=== PATIENT | male | born 1950 | race Caucasian/White ===

== ENCOUNTER 2019-04-23 07:35 | Outpatient (CLI) | payer MEDICARE ==
[2019-04-23 09:20] LABS: #Eosinphils 0.8 thou/uL (0.0-0.7); #Lymphocytes 1.4 thou/uL (1.20-3.40); #Monocytes 0.5 thou/uL (0.11-0.59); #Neutrophils 3.4 thou/uL (1.40-6.50); %Basophils 0.5 % (0.0-1.0); %Eosinophils 12.5 % (0.0-10.0); %Lymphocytes 23.2 % (21.0-51.0); %Neutrophils 55.9 % (42.0-75.0); Hemoglobin 11.8 g/dL (14.0-18.0); Mean Corpuscular HGB CONC 34.4 g/dL (32.0-36.0); Mean Corpuscular Hemoglobin 31.4 pg (27.0-31.0); Mean Corpuscular Volume 91.5 fL (78.0-98.0); Mean Platelet Volume 6.7 fL (7.4-10.4); Platelet Count 282 thou/uL (130-400); RBC Distribution Width 11.4 % (11.5-14.5); Red Blood Cell (RBC) Count 3.76 mill/uL (4.70-6.10); White Blood Cell (WBC) Count 6.1 thou/uL (4.8-10.8)
--- NOTE | 2019-04-23 09:42 | RAD ---
CHEST 2 VIEWS: Date: 04/23/19 HISTORY: Preoperative evaluation. COMPARISON: 07/31/16. FINDINGS: Postop midline sternotomy. Heart size is normal. The lungs are clear. IMPRESSION: No acute intrathoracic disease. Postop midline sternotomy. POS: TPC
[2019-04-23 09:48] LABS: ALT (SGPT) 16 U/L (8-55); AST (SGOT) 15 U/L (5-34); Albumin 4.5 g/dL (3.4-4.8); Alkaline Phosphatase 46 U/L (40-110); Anion Gap 9 mmol/L (10-20); BUN (Urea Nitrogen) 20 mg/dL (8.4-25.7); Bilirubin, Total 0.4 mg/dL (0.2-1.2); Calc. Creatinine Clearance 0 mL/min (70-130); Carbon Dioxide 28 mmol/L (23-31); Chloride 104 mmol/L (98-107); Estimated GFR-MDRD 64; Globulin 2.7 g/dL (2.4-3.5); Glucose 207 mg/dL (83-110); Potassium 5.2 mmol/L (3.5-5.1); Protein, Total 7.2 g/dL (5.8-8.1); Sodium 136 mmol/L (136-145)
== END 2019-04-23 07:36 | disposition home or self-care (01) ==
LOC: LABBT 07:35
PROVIDERS: ATTEND Internal Medicine Cardiovascular Disease
DX: Z01.818 Encounter for other preprocedural examination (principal); R94.39 Abnormal result of other cardiovascular function study; Z98.890 Other specified postprocedural states
CPT/HCPCS: 71046; 80053; 85025

== ENCOUNTER 2019-04-28 05:46 | Day surgery (SDC) | payer MEDICARE ==
[2019-04-28] MEDS ORDERED: Heparin 10,000 UNITS/1 ML VIAL ONE (06:40)
[2019-04-28] MEDS ORDERED: Lidocaine 1% (PF) 30 ML VIAL ONE (06:40)
[2019-04-28] MEDS ORDERED: Heparin (Artline) 1,000 ML ONE (06:40)
[2019-04-28] MEDS ORDERED: Midazolam HCl 2 mg/2 ml Vial ONE (07:04)
[2019-04-28] MEDS ORDERED: Fentanyl 100 MCG/2 ML VIAL ONE (07:04)
[2019-04-28 07:24] LABS: Cardiac Risk 3.3 (Less than 4.5)
[2019-04-28] MEDS ORDERED: Protamine Sulfate 50 MG/5 ML VIAL ONE (07:44)
[2019-04-28] MEDS ORDERED: Sodium Chloride 0.9% 200 ML IV PRN (08:07)
[2019-04-28] MEDS ORDERED: Nitroglycerin 0.4 MG TAB (25 Tab Bottle) SL PRN (08:07)
[2019-04-28] MEDS ORDERED: Sodium Chloride 0.9% 1,000 ML IV SCH (08:15)
[2019-04-28] MEDS ORDERED: Iopamidol 370 76% 100 ML VIAL ONE (13:23)
[2019-04-28] MEDS ORDERED: Iopamidol 370 76% 50 ML VIAL FS ONE (13:23)
[2019-04-28] MEDS ORDERED: Dextrose 50% Abboject 50 ML SYRINGE IVP PRN (15:29)
[2019-04-28] MEDS ORDERED: Dextrose 5% in Water 1,000 ML IV PRN (15:29)
[2019-04-28] MEDS: Amlodipine 10 MG TAB PO SCH (16:08)
[2019-04-28] MEDS: Aspirin 81 mg Enteric Coated Tablet PO SCH (16:08)
[2019-04-28] MEDS: Isosorbide Mononitrate (ER) 30 MG TAB PO SCH (16:08)
[2019-04-28] MEDS: Lisinopril 20 MG TAB PO SCH (16:09)
[2019-04-28] MEDS: Sodium Chloride 0.9% 1,000 ML IV SCH (16:09)
[2019-04-28 16:11] VITALS: BMI 22.8
[2019-04-28] MEDS: Insulin Regular 300 UNITS/3 ML VIAL SC PRN (17:26)
[2019-04-28] MEDS: Atorvastatin Calcium 20 MG TAB PO SCH (21:22)
[2019-04-29 04:39] LABS: Anion Gap 14 mmol/L (10-20); BUN (Urea Nitrogen) 19 mg/dL (8.4-25.7); Calc. Creatinine Clearance 69 mL/min (70-130); Calcium 9.2 mg/dL (7.8-10.44); Carbon Dioxide 21 mmol/L (23-31); Chloride 107 mmol/L (98-107); Estimated GFR-MDRD 78; Glucose 135 mg/dL (83-110); Potassium 4.5 mmol/L (3.5-5.1); Sodium 137 mmol/L (136-145)
[2019-04-29] MEDS: Amlodipine 10 MG TAB PO SCH (09:11)
[2019-04-29] MEDS: Aspirin 81 mg Enteric Coated Tablet PO SCH (09:11)
[2019-04-29] MEDS: Lisinopril 20 MG TAB PO SCH (09:12)
[2019-04-29] MEDS: Isosorbide Mononitrate (ER) 30 MG TAB PO SCH (09:12)
[2019-04-29] MEDS: Sodium Chloride 0.9% 1,000 ML IV SCH (10:00)
--- NOTE | 2019-04-29 11:56 | CON ---
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 He underwent three-vessel coronary artery bypass grafting in [place] about 11 years ago. Since that time, he has followed with Dr. Stringer and been compliant with his medications. He has no smoking history, but does have a family history of heart disease. Cholesterol levels have been good on management. He has been complaining of dyspnea on exertion, although when I talked to him, he states that occasionally about twice a week while he is doing the dishes, he gets a tightness in his chest or a funny feeling and some dyspnea. He had a stress test by Dr. Stringer about six or seven months ago that was abnormal. However, the patient was in [place] working at the time that he found out the results and is just now getting to this point. PAST MEDICAL HISTORY: Other past medical history includes diabetes mellitus type 2, hyperlipidemia, hypertension, and coronary artery disease. PAST SURGICAL HISTORY: Coronary artery bypass graft x3 in 2005, cardiac catheterization in 2009, and cholecystectomy. SOCIAL HISTORY: He is . Never smoked. His is in a wheelchair related to ascending aortic aneurysm surgery that he had in [place] in [place]. ALLERGIES: TO CODEINE. MEDICATIONS: 1. Metformin 1000 b.i.d. 2. Amlodipine 10 daily. 3. Lisinopril 40 daily. 4. Aspirin 81 a day. 5. Glipizide 5 mg daily. 6. Simvastatin 20 mg daily. 7. Isosorbide ER 60 a day. PHYSICAL EXAMINATION: GENERAL: Alert, cooperative gentleman, about 5 foot 8 inches and 160 pounds. NECK: No carotid bruits. LUNGS: Clear to auscultation. Chest exam, well-healed sternotomy incision. CARDIAC: No murmurs. ABDOMEN: Soft and nontender. EXTREMITIES: He has palpable posterior tibial pulses bilaterally with no peripheral edema. Difficult to see which leg had the saphenous vein harvest, but there is a hint of a slight scar just above the left knee, although I am not sure about this. ASSESSMENT AND PLAN: Cardiac catheterization showed three patent grafts, although the obtuse marginal graft has some mid stenosis. I am not sure whether this is an obtuse marginal or a posterolateral branch actually. The diagonal branch graft is open and the left internal mammary artery is widely patent, although the distal left anterior descending is diffusely and severely diseased. The proximal circumflex has a 99% stenosis and gives rise to two small distal obtuse marginal branches, which are not amenable to grafting. The right coronary artery is small sized, but is a dominant vessel with critical proximal and mid lesions. Surgical intervention could be undertaken to the main right coronary artery, although this is not a particularly dominant appearing vessel. The circumflex cannot be grafted. LAD graft is patent, although goes to a diffusely and severely diseased vessel. At this time, I think redo grafting for a right coronary artery is probably not appropriate and medical management of this is most reasonable option. Job ID: [id number]
[2019-04-29] MEDS: Insulin Regular 300 UNITS/3 ML VIAL SC PRN (12:41)
[2019-04-29 15:56] VITALS: TEMP 97.5
[2019-04-29] MEDS: Atorvastatin Calcium 20 MG TAB PO SCH (20:53)
[2019-04-29 21:19] VITALS: BP 169/77
--- NOTE | 2019-04-30 04:30 | DIS ---
DATE OF ADMISSION: 04/28/2019 DATE OF DISCHARGE: 04/29/2019 DISCHARGE DIAGNOSES: 1. Dyspnea on exertion, probable anginal equivalent. 2. Status post coronary artery bypass grafting with 3/3 grafts patent with disease in 1 of the 3 grafts. 3. Bradycardia-resolved with discontinuation of metoprolol. 4. Nonsustained ventricular tachycardia. 5. Hypercholesterolemia, changed to atorvastatin. 6. Hypertension. 7. Diabetes. 8. Positive family history. DISCHARGE MEDICATIONS: 1. Metformin 1000 mg b.i.d., it was resumed the day after discharge. 2. Amlodipine 10 mg daily. 3. Ranexa 500 mg b.i.d. 4. Atorvastatin 40 mg daily. 5. Aspirin 81 daily. 6. Glipizide 5 mg q.a.m. 7. Isosorbide mononitrate 30 mg daily. 8. Lisinopril 40 mg daily. 9. Nitroglycerin p.r.n. DISCHARGE DISPOSITION: The patient will be seen in 1 month for followup. Ranexa dose will probably be increased at that time. Also, consideration could be given to the addition of Xarelto 2.5 b.i.d. HOSPITAL COURSE: Mr. Peralta underwent cardiac catheterization for abnormal cardiac PET scan. This performed for evaluation of nonsustained ventricular tachycardia, which was seen on a 30-day monitor followed by the PET scan, which was abnormal. At catheterization, he was found to have mild proximal to distal anterior hypokinesis with ejection fraction of 45% to 50%. There was a 70% left main, 80% proximal LAD, total occlusion of the mid LAD, and a total occlusion of the first diagonal. The circumflex had a 90% proximal stenosis at the left main, 50% distal stenosis. The obtuse marginal 1 was totally occluded and filled retrograde via collaterals. The obtuse marginal 2 was totally occluded, but had a bypass graft. The right coronary artery had an 80% proximal stenosis with pressure damping, 70% followed by another 70% mid stenosis. Bypass grafts revealed patent JUAREZ to the LAD. There was 80% to 90% stenosis distal to the graft. The diagonal graft was patent. The obtuse marginal graft had a 70% and 60% stenosis. The patient was observed overnight and hydrated due to history of previous renal problems. He also was seen in consultation by Dr. Arita, who felt that probably only the main right coronary artery could be bypassed. Significant lesion in the proximal circumflex could not be bypassed due to a very small distal vessel. Overall, feeling that the best option for Mr. Peralta would be intensified medical therapy. Ranexa was added and an attempt will be made to keep his cholesterol lower. Job ID: [id number]
== END 2019-04-29 21:05 | disposition home or self-care (01) ==
LOC: CCL 05:46 → 2NO 15:15 → CCL 04-29 21:05
PROVIDERS: ATTEND Internal Medicine Cardiovascular Disease
PROC: 4A023N7 Measurement of Cardiac Sampling and Pressure, Left Heart, Percutaneous Approach (ICD-10-PCS; principal; 2019-04-28)
PROC: B2111ZZ Fluoroscopy of Multiple Coronary Arteries using Low Osmolar Contrast (ICD-10-PCS; 2019-04-28)
PROC: B2131ZZ Fluoroscopy of Multiple Coronary Artery Bypass Grafts using Low Osmolar Contrast (ICD-10-PCS; 2019-04-28)
PROC: B2181ZZ Fluoroscopy of Left Internal Mammary Bypass Graft using Low Osmolar Contrast (ICD-10-PCS; 2019-04-28)
DX: I25.10 Atherosclerotic heart disease of native coronary artery without angina pectoris (principal); I25.810 Atherosclerosis of coronary artery bypass graft(s) without angina pectoris; I25.82 Chronic total occlusion of coronary artery; E78.00 Pure hypercholesterolemia, unspecified; I10 Essential (primary) hypertension; E11.9 Type 2 diabetes mellitus without complications; E78.5 Hyperlipidemia, unspecified; Z79.82 Long term (current) use of aspirin; Z79.84 Long term (current) use of oral hypoglycemic drugs; Z79.899 Other long term (current) drug therapy; Z88.5 Allergy status to narcotic agent
CPT/HCPCS: 36415; 36416; 80048; 80061; 85347; 93458; 99152; 99153; C1769; J1644; J1815; J2001; J2250; J2720; J3010; Q9967

== ENCOUNTER 2019-11-12 15:27 | Emergency (ER) | payer MEDICARE ==
[2019-11-12 16:19] LABS: #Eosinphils 0.5 thou/uL (0.0-0.7); #Lymphocytes 1.5 thou/uL (1.20-3.40); #Monocytes 0.6 thou/uL (0.11-0.59); #Neutrophils 2.9 thou/uL (1.40-6.50); %Basophils 0.6 % (0.0-1.0); %Eosinophils 8.6 % (0.0-10.0); %Lymphocytes 26.7 % (21.0-51.0); %Monocytes 10.3 % (0.0-10.0); %Neutrophils 53.8 % (42.0-75.0); Hemoglobin 9.8 g/dL (14.0-18.0); Mean Corpuscular HGB CONC 34.3 g/dL (32.0-36.0); Mean Corpuscular Hemoglobin 32.8 pg (27.0-31.0); Mean Corpuscular Volume 95.6 fL (78.0-98.0); Mean Platelet Volume 6.9 fL (7.4-10.4); Platelet Count 258 thou/uL (130-400); RBC Distribution Width 11.3 % (11.5-14.5); Red Blood Cell (RBC) Count 2.98 mill/uL (4.70-6.10); White Blood Cell (WBC) Count 5.5 thou/uL (4.8-10.8)
[2019-11-12 16:40] LABS: ALT (SGPT) 13 U/L (8-55); AST (SGOT) 12 U/L (5-34); Albumin 3.9 g/dL (3.4-4.8); Alkaline Phosphatase 56 U/L (40-110); Anion Gap 12 mmol/L (10-20); BUN (Urea Nitrogen) 23 mg/dL (8.4-25.7); Bilirubin, Total 0.4 mg/dL (0.2-1.2); CK (CPK) 64 U/L (30-200); Calc. Creatinine Clearance 0 mL/min (70-130); Calcium 8.9 mg/dL (7.8-10.44); Carbon Dioxide 23 mmol/L (23-31); Chloride 102 mmol/L (98-107); Estimated GFR-MDRD 42; Globulin 2.7 g/dL (2.4-3.5); Glucose 201 mg/dL (83-110); Lipase 20 U/L (8-78); Potassium 4.4 mmol/L (3.5-5.1); Protein, Total 6.6 g/dL (5.8-8.1); Sodium 133 mmol/L (136-145)
--- NOTE | 2019-11-12 16:42 | CT ---
CT Head without IV contrast COMPARISON: None. HISTORY: Trauma. Patient fell and hit head on a still being 3 days ago. Patient reports dizziness which has w orsened throughout the day. TECHNIQUE: Axial CT imaging at 5 mm intervals from vertex through skull base without contrast FINDINGS: There is no evidence of an acute infarction, hemorrhage, mass effect, or midline shift. There is decr eased attenuation seen in the periventricular white matter which is nonspecific but likely attributable to chronic small vessel ischemic changes. There is mild cerebral volume loss. The ventri cular system is normal in size, shape, and position for the degree of sulcal atrophy. Visualized paranasal sinuses are clear. Osseous structures appear intact. IMPRESSION: 1. No acute intracranial abnormality demonstrated. additional findings
--- NOTE | 2019-11-12 17:29 | RAD ---
PORTABLE CHEST: 11/12/19 PROVIDED CLINICAL HISTORY: Syncope. COMPARISON: 07/31/16. Cardiac and mediastinal silhouette is within normal limits. Median sternotomy changes are seen. No fo genny consolidation, pleural fluid or pneumothorax apparent. IMPRESSION: No evidence for an acute cardiopulmonary process. POS: GINGER
== END 2019-11-12 17:35 | disposition home or self-care (01) ==
LOC: ERS 15:27
DX: S06.0X0A Concussion without loss of consciousness, initial encounter (principal); R55 Syncope and collapse; E11.9 Type 2 diabetes mellitus without complications; E78.5 Hyperlipidemia, unspecified; E78.00 Pure hypercholesterolemia, unspecified; I10 Essential (primary) hypertension; Z79.82 Long term (current) use of aspirin; Z79.84 Long term (current) use of oral hypoglycemic drugs; Z79.899 Other long term (current) drug therapy; W01.198A Fall on same level from slipping, tripping and stumbling with subsequent striking against other object, initial encounter
CPT/HCPCS: 36415; 70450; 71045; 80053; 82550; 83690; 83880; 84484; 85025; 93005

== ENCOUNTER 2019-11-30 12:09 | Observation (INO) | payer MEDICARE, OTHER ==
[2019-11-30 12:33] LABS: #Eosinphils 0.1 thou/uL (0.0-0.7); #Monocytes 0.5 thou/uL (0.11-0.59); #Neutrophils 6.5 thou/uL (1.40-6.50); %Basophils 0.2 % (0.0-1.0); %Eosinophils 1.8 % (0.0-10.0); %Lymphocytes 11.7 % (21.0-51.0); %Monocytes 6.1 % (0.0-10.0); %Neutrophils 80.3 % (42.0-75.0); Hemoglobin 10.8 g/dL (14.0-18.0); Mean Corpuscular HGB CONC 33.6 g/dL (32.0-36.0); Mean Corpuscular Hemoglobin 32.2 pg (27.0-31.0); Mean Corpuscular Volume 95.9 fL (78.0-98.0); Mean Platelet Volume 6.8 fL (7.4-10.4); Platelet Count 291 thou/uL (130-400); RBC Distribution Width 11.4 % (11.5-14.5); Red Blood Cell (RBC) Count 3.36 mill/uL (4.70-6.10); White Blood Cell (WBC) Count 8.1 thou/uL (4.8-10.8)
[2019-11-30 12:56] LABS: ALT (SGPT) 18 U/L (8-55); AST (SGOT) 13 U/L (5-34); Albumin 4.2 g/dL (3.4-4.8); Alkaline Phosphatase 53 U/L (40-110); Anion Gap 13 mmol/L (10-20); BUN (Urea Nitrogen) 27 mg/dL (8.4-25.7); Bilirubin, Total 0.6 mg/dL (0.2-1.2); CK (CPK) 57 U/L (30-200); Calc. Creatinine Clearance 0 mL/min (70-130); Calcium 9.3 mg/dL (7.8-10.44); Carbon Dioxide 24 mmol/L (23-31); Chloride 105 mmol/L (98-107); Estimated GFR-MDRD 33; Globulin 2.6 g/dL (2.4-3.5); Glucose 280 mg/dL (83-110); Protein, Total 6.8 g/dL (5.8-8.1); Sodium 135 mmol/L (136-145)
--- NOTE | 2019-11-30 12:58 | RAD ---
XR Chest 1 View Portable HISTORY: Dizziness and weakness COMPARISON: 11/12/2019 FINDINGS: The heart size is normal. Changes of median sternotomy are again seen. The lungs are well e xpanded without focal areas of consolidation, pneumothorax or pleural effusions. IMPRESSION: No radiographic evidence of acute cardiopulmonary process.
[2019-11-30 13:04] LABS: Potassium 6.6 mmol/L (3.5-5.1)
[2019-11-30 15:31] LABS: Anion Gap 13 mmol/L (10-20); BUN (Urea Nitrogen) 26 mg/dL (8.4-25.7); Calc. Creatinine Clearance 0 mL/min (70-130); Carbon Dioxide 22 mmol/L (23-31); Chloride 106 mmol/L (98-107); Estimated GFR-MDRD 39; Glucose 207 mg/dL (83-110); Potassium 6.1 mmol/L (3.5-5.1); Sodium 135 mmol/L (136-145)
[2019-11-30] MEDS ORDERED: Calcium Gluc 4.6 MEQ/10 ML (100 MG/ML) ONE (16:12)
[2019-11-30] MEDS ORDERED: Sodium Bicarb 50 MEQ/50 ML Abboject 8.4% SYRINGE ONE (16:12)
[2019-11-30] MEDS ORDERED: Dextrose 50% Abboject 50 ML SYRINGE ONE (16:12)
[2019-11-30] MEDS ORDERED: Insulin Regular 300 UNITS/3 ML VIAL ONE (16:12)
[2019-11-30] MEDS ORDERED: Senokot S 8.6-50 MG TAB PO PRN (16:57)
[2019-11-30] MEDS ORDERED: Ondansetron ODT 4 MG TAB PO PRN (16:57)
[2019-11-30] MEDS ORDERED: Acetaminophen 325 MG TAB PO PRN (16:57)
[2019-11-30 16:59] LABS: Magnesium 1.7 mg/dL (1.6-2.6); Phosphorus 3.1 mg/dL (2.3-4.7)
[2019-11-30] MEDS ORDERED: Dextrose 5% in Water 1,000 ML IV PRN (17:05)
[2019-11-30] MEDS ORDERED: Dextrose 50% Abboject 50 ML SYRINGE SLOW IVP PRN (17:05)
[2019-11-30] MEDS ORDERED: HumaLOG 300 UNITS/3 ML VIAL SC PRN ×2 (17:05)
[2019-11-30 17:06] LABS: Troponin I 0.013 ng/mL (< 0.028)
[2019-11-30] MEDS ORDERED: Atropine Sulfate 1 mg/1 ml Vial IVP PRN (17:25)
[2019-11-30] MEDS ORDERED: Magnesium 2 GM/50 ML 2 GM in Premix Bag 1 BAG IVPB SCH (17:30)
--- NOTE | 2019-11-30 18:30 | HP ---
PRIMARY CARE PHYSICIAN: Vitor Rowan MD CHIEF COMPLAINT: Dizziness x1 year. HISTORY OF PRESENT ILLNESS: The patient is a 69-year-old male with a past medical history significant for quadruple bypass in 2006, hypertension, hyperlipidemia, and diabetes, who presents to the ER for the above complaint. The patient reports the development of dizziness while working outside on a handrail. He reports that he was going to feel like he was going to "pass out." He denies the room spinning. He says that this has happened million times before, reporting that it always happens when I stand up or go from sitting to standing. He denies any chest pain, heart palpitations, or any lower extremity swelling. He denies any shortness of breath, wheezing, or cough. He denies any abdominal pain, nausea, vomiting, diarrhea, or blood in his stools. He denies any dysuria, fever, or chills. He had a cardiac cath in April [address] Stringer, which showed significant left heart disease. Dr. Arita was consulted and recommended medical management, which the patient has been compliant on his medications. EMS was called. The patient's vital signs were stable. He was brought into the ER. In the ER, he was afebrile, normotensive, bradycardic with a heart rate 55, normal respirations, normal oxygen sat, no pain. EKG, sinus raquel at 57 with some peaked T-waves. Troponin negative. CK 57. His potassium was 6.6, BUN 27, and creatinine 1.75. His CBC was unremarkable. He was given an amp of D50, Novolin 10 units IV push, and some calcium gluconate, 1 L of normal saline with an amp of bicarb. PAST MEDICAL HISTORY: 1. Diabetes 2. 2. Hyperlipidemia. 3. Hypertension. PAST SURGICAL HISTORY: 1. CABG x4 in 2006. 2. Cholecystectomy. 3. Femur surgery. SOCIAL HISTORY: Lives with his family. He has no history of smoking, illicit drug use, or alcohol intake. He works as a contractor, a kind of parts delivery driver. FAMILY HISTORY: Contributory for cardiac disease, contributory for diabetes. ALLERGIES: CODEINE. HOME MEDICATIONS: 1. Metoprolol 2.5 mg p.o. b.i.d. 2. Aspirin 81 mg p.o. daily. 3. Xarelto, the patient reports 2.5 mg p.o. b.i.d. 4. Lisinopril 20 mg p.o. daily. 5. Simvastatin 20 mg p.o. daily. 6. Norvasc 5 mg p.o. daily. 7. Isosorbide mononitrate extended release 30 mg p.o. daily. 8. Ranexa 1000 mg p.o. b.i.d. 9. Metformin 1000 mg p.o. b.i.d. 10. Glipizide 5 mg p.o. daily. REVIEW OF SYSTEMS: All review of systems are negative unless otherwise stated in HPI. PHYSICAL EXAMINATION: VITAL SIGNS: Temperature 97.5, blood pressure 126/70, heart rate 55, respirations 18, and SpO2 of 99, 0/10 pain. CONSTITUTIONAL: The patient is alert and oriented to person, place, and time. No acute distress. Nontoxic in appearance. HEAD: Atraumatic and normocephalic. EYES: PERRLA. Extraocular muscles are intact. Sclerae nonicteric. ENT: Bilateral EACs, clear. TMs intact. Nares patent bilaterally. Oropharynx is clear. Uvula midline. Tacky mucous membranes. No oral lesions. NECK: Full range of motion. No cervical spinous tenderness. No JVD. No cervical adenopathy. RESPIRATORY/CHEST: Respirations even nonlabored. Clear to auscultation. No rhonchi, wheezes, or rales. CARDIOVASCULAR: S1 and S2 appreciated. Sinus raquel on the monitor. No murmurs , rubs or gallops. ABDOMEN: Soft, nontender, and nondistended. Active bowel sounds. No guarding. No rigidity. No rebound. Negative Rovsing sign. Negative Almendarez sign. No abdominal bruit auscultated. BACK: Full range of motion. No central spinous tenderness. No CVA tenderness. EXTREMITIES: Bilateral lower extremities, full range of motion. Strength normal. Sensation intact. Palpable radial pulses. Lower extremities, full range of motion. Strength normal. Sensation intact. Palpable pedal pulses, no swelling. NEUROLOGICAL: A and O x3. Moves all extremities well. No focal motor deficits. normal gait.PSYCHIATRIC: Normal affect. A and O x3. LABS AND DIAGNOSTICS: Chest x-ray negative for any acute process. EKG showed sinus raquel with some peaked T-waves. Sodium 135, potassium 6.6, chloride 105, carbon dioxide 24, BUN 27, creatinine 2.03, glucose 280, calcium 9.3, phosphorus 3.1, magnesium 1.7, total bilirubin 0.6, AST 13, ALT 18, alkaline phosphatase 53. CK 57. Tial troponin negative, second troponin 0.013. WBCs 8.1, hemoglobin 10.8, hematocrit 32.3, and platelets 291. IMPRESSION AND PLAN: 1. Near syncope. We will admit the patient to the telemetry floor observation status. Expected length of stay less than two midnights. The patient presents for what appears to be orthostatic hypotension with a significant history of 4- vessel CABG and cardiac risk factors. Potassium 6.6 after ER interventions, now 6.1. We will continue IV fluids with an amp of bicarb. We will give Kayexalate and lactulose. We will get a cardiac echocardiogram, check a carotid ultrasound, and consult Dr. Stringer with Cardiology for further input. We will check a TSH, a BNP and a fasting lipid profile. We will trend troponins. We will check orthostatics, vital signs. 2. Basically hyperkalemia. The patient presented with a potassium 6.6, did have some peaked T-waves. Initial troponin negative. The patient was asymptomatic in terms of chest pain, heart palpitations. We will give IV fluids with bicarb. We will give Kayexalate and lactulose. We will recheck a BMP at 2200 hours. 3. Acute kidney injury, we will give IV fluids. We will check a renal ultrasound. We will check a postvoid residual. We will recheck level in a.m. The patient presented with a creatinine of 1.75, baseline appears to be 1.2. 4. Diabetes type 2, non-insulin dependent. We will hold glipizide and metformin. We will put on moderate sliding scale with Accu-Cheks a.c. and at bedtime. We will check a hemoglobin A1c. 5. Hypertension. We will hold AMAIRANI inhibitors secondary to DWIGHT. We will hold beta-cyril secondary to bradycardia and hyperkalemia. We will restart Imdur, Ranexa, and amlodipine when reconciled by nursing and we will continue to monitor BP. 6. Hyperlipidemia. We will check a fasting lipid profile. We will restart the patient's home statin when reconciled by nursing. 7. SCDs for DVT prophylaxis. Protonix for GI prophylaxis. The patient is a full code. His contact is his girlfriend's brother. Discussed the case with Dr. Kenney. Job ID: [id number] MTDD
[2019-11-30 18:31] LABS: SARS-CoV-2 NAA Rapid Test Not Detected (NotDetected)
[2019-11-30 21:06] LABS: Bacteria/HPF None Seen HPF (None Seen); Bilirubin Negative (Negative); Blood, Urine Negative (Negative); Clarity Clear (Clear); Glucose, Urine (Dipstick) 500 mg/dL (Negative); Ketone, Urine Negative (Negative); Leukocyte Negative Leu/uL (Negative); Nitrite Negative (Negative); Protein, Urine (Dipstick) Negative (Neg-Trace); RBC/HPF 0-3 HPF (0-3); Specific Gravity, Urine 1.016 (1.002-1.036); Squamous Epithelial None Seen HPF (0-3); Urobilinogen Normal mg/dL (Less than 2); WBC/HPF 0-3 HPF (0-3); pH, Urine 6.5 (5.0-9.0)
[2019-11-30 22:36] LABS: Anion Gap 13 mmol/L (10-20); BUN (Urea Nitrogen) 24 mg/dL (8.4-25.7); Calc. Creatinine Clearance 0 mL/min (70-130); Calcium 9.3 mg/dL (7.8-10.44); Carbon Dioxide 24 mmol/L (23-31); Chloride 104 mmol/L (98-107); Estimated GFR-MDRD 37; Glucose 169 mg/dL (83-110); Potassium 4.8 mmol/L (3.5-5.1); Sodium 136 mmol/L (136-145)
--- NOTE | 2019-11-30 23:11 | ULT ---
BILATERAL CAROTID DUPLEX ULTRASOUND: HISTORY: Near-syncope TECHNIQUE: Grayscale, color-flow and spectral Doppler ultrasound imaging of the extracranial carotid artery syst ems was performed bilaterally. FINDINGS: Mild calcified atherosclerotic plaque is seen in the region of the carotid bulbs and proximal interna l carotid arteries bilaterally with slightly greater calcified atherosclerotic plaque involving the distal left common carotid artery. There is no hemodynamically significant stenosis in the bilateral internal carotid arteries according to the peak systolic velocities and the ICA/CCA ratios. The peak systolic velocity in the right ICA measures 63.3 cm/s. The peak systolic velocity in the left IC A measures 115.5 cm/s. The right ICA/CCA ratio is 0.82, and the left ICA/CCA ratio is 1.51. Vertebral arteries: Antegrade flow is demonstrated in the vertebral arteries bilaterally. IMPRESSION: No hemodynamically significant stenosis in the bilateral internal carotid arteries.
--- NOTE | 2019-11-30 23:12 | ULT ---
Bilateral renal ultrasound CLINICAL INDICATION: Acute renal insufficiency. COMPARISON: None FINDINGS: Right kidney: There is no evidence of a renal mass, renal calculus, or hydronephrosis seen. The right kidney measures 10.3 cm x 5.5 seen. Left kidney: There is no evidence of a renal mass, renal calculus, or hydronephrosis. The left kidney measures 10.4 cm x 5.2 cm. Urinary bladder: Normal in appearance. Ureteral jets are seen bilaterally on color flow evaluation. IMPRESSION: No evidence of hydronephrosis.
[2019-11-30 23:32] VITALS: BMI 25.3
[2019-11-30] MEDS: Sodium Bicarbonate 50 MEQ in Sodium Chloride 0.45% 1,000 ML IV SCH (23:40)
[2019-12-01 04:30] LABS: #Eosinphils 0.2 thou/uL (0.0-0.7); #Lymphocytes 1.3 thou/uL (1.20-3.40); #Monocytes 0.8 thou/uL (0.11-0.59); #Neutrophils 4.5 thou/uL (1.40-6.50); %Basophils 0.4 % (0.0-1.0); %Eosinophils 3.6 % (0.0-10.0); %Lymphocytes 18.9 % (21.0-51.0); %Monocytes 11.3 % (0.0-10.0); %Neutrophils 65.8 % (42.0-75.0); Hemoglobin 11.8 g/dL (14.0-18.0); Mean Corpuscular HGB CONC 32.1 g/dL (32.0-36.0); Mean Corpuscular Hemoglobin 31.2 pg (27.0-31.0); Mean Corpuscular Volume 97.2 fL (78.0-98.0); Mean Platelet Volume 6.9 fL (7.4-10.4); Platelet Count 292 thou/uL (130-400); RBC Distribution Width 11.5 % (11.5-14.5); Red Blood Cell (RBC) Count 3.79 mill/uL (4.70-6.10); White Blood Cell (WBC) Count 6.9 thou/uL (4.8-10.8)
[2019-12-01 04:37] LABS: Hemoglobin A1c 9.3 % (4.0-6.0)
[2019-12-01 04:49] LABS: Anion Gap 14 mmol/L (10-20); BUN (Urea Nitrogen) 19 mg/dL (8.4-25.7); Calc. Creatinine Clearance 50 mL/min (70-130); Calcium 9.4 mg/dL (7.8-10.44); Carbon Dioxide 21 mmol/L (23-31); Cardiac Risk 2.8 (Less than 4.5); Chloride 105 mmol/L (98-107); Cholesterol 104 mg/dl (< 200 Desired); Estimated GFR-MDRD 51; Glucose 170 mg/dL (83-110); HDL Cholesterol 37 mg/dL (>60 Neg Risk); LDL Cholesterol, Calculated 47 mg/dL; Potassium 4.3 mmol/L (3.5-5.1); Sodium 136 mmol/L (136-145); Triglycerides 98 mg/dL (Less than 150)
[2019-12-01] MEDS: Famotidine 20 MG TAB PO SCH (08:05)
[2019-12-01] MEDS: Sodium Bicarbonate 50 MEQ in Sodium Chloride 0.45% 1,000 ML IV SCH (08:39)
[2019-12-01] MEDS: Sodium Chloride 0.9% 1,000 ML IV SCH (11:25)
--- NOTE | 2019-12-01 14:29 | PDOC.HOSPP ---
- Subjective Encounter Date: 12/01/19 Encounter Time: 10:00 Subjective: no overnight events. this morning, feeling well and has no complaints. Walking with no lightheadedness or dizzines. Telemetry showing sinus with no arrhythmia. . - Objective Vital Signs & Weight: Vital Signs (12 hours) Temp Pulse Resp BP BP BP BP 12/01/19 11:13 97.4 F L 56 L 16 154/70 H 12/01/19 07:47 97.6 F 58 L 16 161/74 H 12/01/19 04:03 97.7 F 60 16 164/79 H 158/77 H 145/76 H 164/79 H Pulse Ox 12/01/19 11:13 98 12/01/19 07:47 99 12/01/19 04:03 99 Weight Weight 157 lb I&O: 11/30/19 12/01/19 12/02/19 06:59 06:59 06:59 Intake Total 1115 Output Total 1100 Balance 15 Result Diagrams: 12/01/19 04:20 12/01/19 04:20 Hospitalist ROS - Review of Systems Constitutional: denies: fever, chills Respiratory: denies: cough, dry, shortness of breath, hemoptysis Cardiovascular: denies: chest pain, palpitations, orthopnea, paroxysmal noc. dyspnea, edema Gastrointestinal: denies: nausea, vomiting, diarrhea, melena, hematochezia Genitourinary: denies: dysuria, frequency, incontinence, hematuria - Medication Medications: Active Medications Generic Name Dose Route Start Last Admin Trade Name Freq PRN Reason Stop Dose Admin Famotidine 20 mg 12/01/19 09:00 12/01/19 08:05 Pepcid PO 20 mg DAILY MARTHA Administration Sodium Chloride 1,000 mls @ 100 mls/hr 12/01/19 10:15 12/01/19 11:25 Normal Saline 0.9% IV 1,000 mls .Q10H MARTHA Administration - Exam General Appearance: NAD, awake alert Neck: no JVD Heart: RRR, no murmur, no gallops, no rubs Heart - other findings: longitudinal scar along sternum Respiratory: CTAB, no wheezes, no rales Gastrointestinal: soft, non-tender, non-distended Extremities: no edema Psychiatric: normal affect, normal behavior, A&O x 3 Hosp A/P - Plan #presyncope #orthostatic hypotension #prerenal DWIGHT most likely due to dehydration continue IVF recheck orthostats #Diabetes type 2, non-insulin dependent. Poorly controlled. will increase insulin regimen # Hypertension. poorly controlled. goal < 130/70. In context of orthostatic hypotension, will adjust medications after resolution of aforementioned # SCDs for DVT prophylaxis. Protonix for GI prophylaxis. The patient is a full code. His contact is his girlfriend's brother. ELOS: 1 night
[2019-12-01] MEDS: metFORMIN 500 MG TAB PO SCH (18:37)
--- NOTE | 2019-12-01 20:06 | CON ---
DATE OF CONSULTATION: HISTORY OF PRESENT ILLNESS: Marko Peralta is a 69-year-old white male with previous history of CABG x3 in November 2005 at [facility] in [place], [place]. In 2019, he had an abnormal Cardiolite and underwent cardiac catheterization in April 2019. This revealed mild proximal to distal anterior hypokinesis. There was a 70% left main, 80% proximal LAD, and total occlusion of the mid LAD. The first diagonal was totally occluded. The circumflex had a 90% proximal stenosis. The first obtuse marginal was occluded and filled retrograde. Second obtuse marginal was occluded. There was a 50% distal circumflex. The right coronary artery had an 80% proximal and 70% mid stenosis. Bypass grafts revealed patent JUAREZ to the LAD; however, there was a 90% apical LAD lesion. The diagonal graft was patent. The obtuse marginal two grafts were patent with a 70% and 60% stenosis. He was observed overnight and hydrated due to history of renal insufficiency. He was seen by Dr. Arita, who felt that probably only the right coronary artery could be bypassed. The significant lesion in the proximal circumflex could not be bypassed due to small vessels distally. It was a poor vessel for stenting due to its proximity to the left main. He was placed on Ranexa 500 mg b.i.d. Later in the office, he was placed on Xarelto 2.5 b.i.d. He denies any chest discomfort or shortness of breath recently. He twisted his ankle and fell and struck his head on November 09. Since that time, he had orthostatic dizziness. He has noticed that if he would stand up, he woould be dizzzy. He took his blood pressure and this would be in the 80s at times. He states he has been drinking a lot of water over the last three weeks, but still has some problems with orthostatic dizziness. He denies any vertigo. Yesterday, he was painting a hand rail in the heat and started to have the same type of problem. He states he vomited three times and every time he would stand up, would be very lightheaded, dizzy and would have to lie back down. Whenever he would be supine, his dizziness seemed to subside. When he presented, he had a potassium of 6.6, BUN 27, and creatinine 1.75. He does state that he drank a lot of orange juice at that time. He was given an amp of D50, Novolin 10 units IV, calcium gluconate, and 1 L of saline. Today states he feels very well. He has not had any bradycardia on the monitor. PAST MEDICAL HISTORY: Diabetes, hyperlipidemia, hypertension, renal insufficiency, and coronary artery disease. PAST SURGICAL HISTORY: CABG x3 in 2006, laparoscopic cholecystectomy, and femur surgery. SOCIAL HISTORY: He does not smoke or drink. FAMILY HISTORY: Father had myocardial infarction. REVIEW OF SYSTEMS: A 10-point review of systems is otherwise unremarkable. PHYSICAL EXAMINATION: VITAL SIGNS: Blood pressure 179/81 and pulse of 63. HEENT: PERRL. NECK: Supple. CHEST: Clear. CARDIAC: S1 and S2 normal without any S3, S4, or murmurs. Carotid upstrokes normal without bruits. ABDOMEN: Normal bowel sounds without tenderness or organomegaly. EXTREMITIES: Revealed no clubbing, cyanosis, or edema. NEUROLOGIC: Grossly intact. SKIN: Warm and dry. LABORATORY DATA: EKG revealed sinus bradycardia with rate of 57 per minute, nonspecific intraventricular conduction delay. Hemoglobin 11.8, hematocrit 36.9 , white count 6900, and platelets 292,000. Sodium 136, potassium 4.3, chloride 105, carbon dioxide 21, BUN 19, and creatinine 1.37. It is of note that his admission potassium was 6.6. Admission creatinine 2.03, which has come down to 1.37. Cholesterol 104, triglycerides 98, HDL 37, and LDL 47. TSH is normal. BNP is 72.9. Troponins have been normal. IMPRESSION: 1. Orthostatic hypotension. 2. Hyperkalemia, which has resolved. 3. Renal insufficiency, which has improved with hydration. 4. Hypertension. 5. Hyperlipidemia under good control. 6. Diabetes. 7. Status post CABG. PLAN: The patient currently continues to be hydrated. Today, he states that he feels very well and was standing up. He is not having any more of the orthostatics symptoms like he had yesterday. Blood pressure has started to increase in the 160s and 170s at times. Therefore, I will resume his lisinopril and amlodipine, but half of their previous doses. These also may need to be increased in the future. This also could be related to post head trauma that he had on November 09; however, it is probably more related to orthostatic hypotension with his laboratory abnormalities. Job ID: [id number] MTDD
[2019-12-02] MEDS: Sodium Chloride 0.9% 1,000 ML IV SCH (00:22)
[2019-12-02 04:49] LABS: Anion Gap 13 mmol/L (10-20); BUN (Urea Nitrogen) 18 mg/dL (8.4-25.7); Calc. Creatinine Clearance 61 mL/min (70-130); Calcium 8.5 mg/dL (7.8-10.44); Carbon Dioxide 21 mmol/L (23-31); Chloride 106 mmol/L (98-107); Estimated GFR-MDRD 65; Glucose 112 mg/dL (83-110); Magnesium 1.5 mg/dL (1.6-2.6); Sodium 136 mmol/L (136-145)
[2019-12-02] MEDS: metFORMIN 500 MG TAB PO SCH (07:51)
[2019-12-02] MEDS: Famotidine 20 MG TAB PO SCH (07:52)
[2019-12-02 08:52] VITALS: BP 148/68; TEMP 98.5
[2019-12-02] MEDS ORDERED: Lisinopril 10 MG TAB PO SCH (09:00)
[2019-12-02] MEDS ORDERED: Amlodipine 5 MG TAB PO SCH (09:00)
--- NOTE | 2019-12-03 00:25 | DIS ---
DATE OF ADMISSION: 11/30/2019 DATE OF DISCHARGE: 12/02/2019 HOSPITAL COURSE: Mr. Peralta is a 69-year-old male with a medical history of chronic lightheadedness and dizziness. He presented. He was diagnosed with orthostatic hypotension and situational presyncope. He was administered IV fluids and his orthostatic hypotension resolved. However, he still had mild situational presyncope. He was educated regarding lifestyle modification, and after Cardiology was consulted. His antihypertensive medication dosages were cut by half. PHYSICAL EXAMINATION: VITAL SIGNS: Blood pressure 148/68, pulse 60, respiratory rate 18, oxygen saturation 95% on room air, and temperature 98.5 Fahrenheit. GENERAL: Lying comfortably in bed. Awake and alert. NECK: No JVD. HEART: Regular rate and rhythm. No murmurs, gallops, or rubs. There is a longitudinal scar along the sternum, old and healed. RESPIRATORY: Clear to auscultation bilaterally. No wheezes and rales. GI: Soft, nontender, and nondistended. EXTREMITIES: No edema. PSYCHIATRIC: Proper mood and affect. Alert and oriented x3. MEDICATION LIST: Modified medications; 1. Lisinopril was reduced from 20 mg to 10 mg daily. 2. Amlodipine was reduced from 10 mg to 5 mg daily. Continued medications; 1. Aspirin. 2. Glipizide. 3. Isosorbide mononitrate. 4. Atorvastatin. 5. Metformin. 6. Ranolazine. 7. Rivaroxaban. Job ID: [id number]
--- NOTE | 2019-12-23 16:13 | EKG ---
Test Reason : DIZZINESS Blood Pressure : / mmHG Vent. Rate : 057 BPM Atrial Rate : 057 BPM P-R Int : 190 ms QRS Dur : 128 ms QT Int : 476 ms P-R-T Axes : 003 -25 101 degrees QTc Int : 463 ms Sinus bradycardia Non-specific intra-ventricular conduction block Abnormal QRS-T angle, consider primary T wave abnormality Abnormal ECG Confirmed by MOOKIE Benedict, MARY BETH ([id number]), editor in chief newspaper [employer]ID[employer] FARMER ([id number]) on 12/23/2019 4:12:59 PM Referred By: Confirmed By:MARY BETH DAMICO M.D.
== END 2019-12-02 12:05 | disposition home or self-care (01) ==
LOC: ERS 12:09 → 2NO 15:58
PROVIDERS: ADMIT Internal Medicine; ATTEND Internal Medicine
DX: I95.1 Orthostatic hypotension (principal); E87.5 Hyperkalemia; N17.9 Acute kidney failure, unspecified; E11.9 Type 2 diabetes mellitus without complications; I10 Essential (primary) hypertension; E78.5 Hyperlipidemia, unspecified; I25.10 Atherosclerotic heart disease of native coronary artery without angina pectoris; I25.82 Chronic total occlusion of coronary artery; Z79.01 Long term (current) use of anticoagulants; Z79.82 Long term (current) use of aspirin; Z79.84 Long term (current) use of oral hypoglycemic drugs; Z79.899 Other long term (current) drug therapy; Z88.5 Allergy status to narcotic agent; Z95.1 Presence of aortocoronary bypass graft; Z11.59 Encounter for screening for other viral diseases; Z20.828 Contact with and (suspected) exposure to other viral communicable diseases
CPT/HCPCS: 71045; 76770; 80048 ×3; 80061; 81001; 82550; 82962 ×3; 83036; 83735 ×2; 83880; 84100; 84484 ×2; 85025; 93005 ×2; 93306; 93880; 96361; 96365; 96366; 96374; 96375; 97139 ×2; 99285; G0378 ×4; U0002; 36415; 36416; 51798; 80053; 84443; 93010; J1815; J3475

== ENCOUNTER 2021-02-16 12:28 | Outpatient (CLI) | payer MEDICARE | END 2021-02-16 12:29 | disposition home or self-care (01) | LOC: BICMAMMO 12:28 | PROVIDERS: ATTEND Family Medicine | DX: N63.20 Unspecified lump in the left breast, unspecified quadrant (principal); R92.8 Other abnormal and inconclusive findings on diagnostic imaging of breast | CPT/HCPCS: 76642; 77066; G0279 ==

== ENCOUNTER 2022-03-27 07:49 | Inpatient (IN) | payer MEDICARE ==
[2022-03-27 08:36] LABS: #Eosinphils 0.4 thou/uL (0.0-0.7); #Monocytes 0.8 thou/uL (0.11-0.59); #Neutrophils 5.6 thou/uL (1.40-6.50); %Basophils 0.5 % (0.0-1.0); %Eosinophils 5.2 % (0.0-10.0); %Lymphocytes 12.3 % (21.0-51.0); %Monocytes 10.6 % (0.0-10.0); %Neutrophils 71.3 % (42.0-75.0); Hemoglobin 9.6 g/dL (14.0-18.0); Mean Corpuscular HGB CONC 32.6 g/dL (32.0-36.0); Mean Corpuscular Hemoglobin 32.4 pg (27.0-31.0); Mean Corpuscular Volume 99.5 fl (78.0-98.0); Mean Platelet Volume 7.1 fL (7.4-10.4); Platelet Count 254 10x3/uL (130-400); RBC Distribution Width 12.5 % (11.5-14.5); Red Blood Cell (RBC) Count 2.96 mill/uL (4.70-6.10); White Blood Cell (WBC) Count 7.8 10x3/uL (4.8-10.8)
[2022-03-27 08:53] LABS: ALT (SGPT) 11 U/L (8-55); AST (SGOT) 12 U/L (5-34); Albumin 3.8 g/dL (3.4-4.8); Alkaline Phosphatase 38 U/L (40-110); Anion Gap 11 mmol/L (10-20); BUN (Urea Nitrogen) 20 mg/dL (8.4-25.7); Bilirubin, Total 0.5 mg/dL (0.2-1.2); Calc. Creatinine Clearance 0 mL/min (70-130); Calcium 9.1 mg/dL (7.8-10.44); Carbon Dioxide 26 mmol/L (23-31); Chloride 107 mmol/L (98-107); Estimated GFR 51; Globulin 2.8 g/dL (2.4-3.5); Glucose 139 mg/dL (83-110); Lipase 23 U/L (8-78); Magnesium 1.4 mg/dL (1.6-2.6); Potassium 5.2 mmol/L (3.5-5.1); Protein, Total 6.6 g/dL (5.8-8.1); Sodium 139 mmol/L (136-145)
[2022-03-27] MEDS ORDERED: Magnesium 2 GM/50 ML BAG (IN WATER) ONE (09:40)
[2022-03-27] MEDS ORDERED: Ondansetron PF 4 MG/2 ML Vial ONE (09:56)
[2022-03-27 10:08] LABS: Bacteria/HPF None Seen HPF (None Seen); Bilirubin Negative (Negative); Blood, Urine Negative (Negative); Clarity Clear (Clear); Glucose, Urine (Dipstick) >=1000 mg/dL (Negative); Ketone, Urine Negative (Negative); Leukocyte Negative Leu/uL (Negative); Nitrite Negative (Negative); Protein, Urine (Dipstick) 30 mg/dL (Neg-Trace); RBC/HPF None Seen HPF (0-3); Specific Gravity, Urine 1.018 (1.002-1.036); Squamous Epithelial None Seen HPF (0-3); Urobilinogen Normal mg/dL (Less than 2); WBC/HPF 0-3 HPF (0-3)
[2022-03-27] MEDS ORDERED: HYDROcodone/Acetaminophen 5/325 mg Tablet PO PRN (11:47)
[2022-03-27] MEDS ORDERED: Acetaminophen 325 MG TAB PO PRN (11:47)
[2022-03-27] MEDS ORDERED: Sodium Chloride 0.9% 1,000 ML IV SCH (12:00)
[2022-03-27] MEDS ORDERED: Dextrose 50% Abboject 50 ML SYRINGE SLOW IVP PRN (12:09)
[2022-03-27] MEDS ORDERED: Dextrose 5% in Water 1,000 ML IV PRN (12:09)
[2022-03-27] MEDS ORDERED: Insulin Regular 300 UNITS/3 ML VIAL SC PRN (12:09)
[2022-03-27 12:47] VITALS: BMI 22.9
[2022-03-27 13:53] LABS: Hemoglobin A1c 7.1 % (4.0-6.0)
[2022-03-27 13:55] LABS: Troponin I 0.014 ng/mL (< 0.028)
[2022-03-27] MEDS: Atorvastatin Calcium 20 MG TAB PO SCH (19:47)
[2022-03-27] MEDS: Famotidine 20 MG TAB PO SCH (19:47)
[2022-03-27] MEDS: Midodrine HCl 5 MG TAB PO SCH (19:49)
[2022-03-27] MEDS: Rivaroxaban 2.5 MG TAB PO SCH (19:50)
[2022-03-27] MEDS ORDERED: Amlodipine 5 MG TAB PO SCH (21:00)
[2022-03-28 05:20] LABS: #Eosinphils 0.4 thou/uL (0.0-0.7); #Lymphocytes 1.2 thou/uL (1.20-3.40); #Monocytes 0.6 thou/uL (0.11-0.59); %Basophils 0.5 % (0.0-1.0); %Eosinophils 7.5 % (0.0-10.0); %Lymphocytes 23.4 % (21.0-51.0); %Monocytes 10.8 % (0.0-10.0); %Neutrophils 57.9 % (42.0-75.0); Hemoglobin 9.1 g/dL (14.0-18.0); Mean Corpuscular HGB CONC 33.3 g/dL (32.0-36.0); Mean Corpuscular Hemoglobin 33.4 pg (27.0-31.0); Platelet Count 228 10x3/uL (130-400); RBC Distribution Width 12.4 % (11.5-14.5); Red Blood Cell (RBC) Count 2.72 mill/uL (4.70-6.10); White Blood Cell (WBC) Count 5.1 10x3/uL (4.8-10.8)
[2022-03-28 05:46] LABS: ALT (SGPT) 10 U/L (8-55); AST (SGOT) 11 U/L (5-34); Albumin 3.4 g/dL (3.4-4.8); Alkaline Phosphatase 37 U/L (40-110); Anion Gap 10 mmol/L (10-20); BUN (Urea Nitrogen) 19 mg/dL (8.4-25.7); Bilirubin, Total 0.6 mg/dL (0.2-1.2); Calc. Creatinine Clearance 43 mL/min (70-130); Calcium 8.6 mg/dL (7.8-10.44); Carbon Dioxide 24 mmol/L (23-31); Chloride 107 mmol/L (98-107); Estimated GFR 50; Globulin 2.3 g/dL (2.4-3.5); Glucose 149 mg/dL (83-110); Magnesium 1.6 mg/dL (1.6-2.6); Potassium 4.7 mmol/L (3.5-5.1); Protein, Total 5.7 g/dL (5.8-8.1); Sodium 136 mmol/L (136-145)
[2022-03-28] MEDS ORDERED: Furosemide 20 MG/2 ML VIAL SLOW IVP SCH (09:00)
[2022-03-28] MEDS: Rivaroxaban 2.5 MG TAB PO SCH ×2 (09:47→21:19)
[2022-03-28] MEDS: Aspirin Chewable 81 MG TAB PO SCH (09:49)
[2022-03-28] MEDS: Midodrine HCl 5 MG TAB PO SCH (09:49)
[2022-03-28] MEDS: Famotidine 20 MG TAB PO SCH ×2 (09:49→21:18)
[2022-03-28] MEDS: cefTRIAXone\\ROCEPHIN 1 GM in Sodium Chloride 0.9% 100 ML IVPB SCH (12:31)
[2022-03-28] MEDS: Atorvastatin Calcium 20 MG TAB PO SCH (21:18)
[2022-03-29] MEDS ORDERED: Furosemide 20 MG TAB PO SCH (09:00)
[2022-03-29] MEDS: Aspirin Chewable 81 MG TAB PO SCH (09:23)
[2022-03-29] MEDS: Famotidine 20 MG TAB PO SCH (09:23)
[2022-03-29] MEDS: Rivaroxaban 2.5 MG TAB PO SCH (09:25)
[2022-03-29] MEDS: cefTRIAXone\\ROCEPHIN 1 GM in Sodium Chloride 0.9% 100 ML IVPB SCH (14:26)
[2022-03-29 15:58] VITALS: BP 150/71; TEMP 97.5
== END 2022-03-29 17:54 | disposition home or self-care (01) | DRG 291 ==
LOC: ERS 07:49 → 2SW 12:39 → OBSVTOIN 03-28 14:55
PROVIDERS: ADMIT Hospitalist; ATTEND Internal Medicine
DX: I13.0 Hypertensive heart and chronic kidney disease with heart failure and stage 1 through stage 4 chronic kidney disease, or unspecified chronic kidney disease (principal); I50.33 Acute on chronic diastolic (congestive) heart failure; R78.81 Bacteremia; Z20.822 Contact with and (suspected) exposure to COVID-19; E83.42 Hypomagnesemia; I25.10 Atherosclerotic heart disease of native coronary artery without angina pectoris; E11.22 Type 2 diabetes mellitus with diabetic chronic kidney disease; N18.9 Chronic kidney disease, unspecified; D63.1 Anemia in chronic kidney disease; E78.5 Hyperlipidemia, unspecified; E87.5 Hyperkalemia; I48.0 Paroxysmal atrial fibrillation; Z95.1 Presence of aortocoronary bypass graft; B95.5 Unspecified streptococcus as the cause of diseases classified elsewhere; I95.1 Orthostatic hypotension; Z79.82 Long term (current) use of aspirin; Z79.84 Long term (current) use of oral hypoglycemic drugs; Z79.899 Other long term (current) drug therapy
CPT/HCPCS: 36415; 36416; 71045; 80053; 81003; 81015; 83036; 83605; 83690; 83735; 83880; 84439; 84443; 84484; 85025; 87040; 87086; 87149; 87186; 93005; 93798; J0696; J1940; J2405; J3475; J3490; J7050; U0003; U0005

== ENCOUNTER 2022-03-30 11:31 | Emergency (ER) | payer MEDICARE ==
[2022-03-30 12:25] LABS: #Eosinphils 0.4 thou/uL (0.0-0.7); #Lymphocytes 1.2 thou/uL (1.20-3.40); #Monocytes 0.8 thou/uL (0.11-0.59); #Neutrophils 6.2 thou/uL (1.40-6.50); %Lymphocytes 14.2 % (21.0-51.0); %Monocytes 9.4 % (0.0-10.0); %Neutrophils 71.4 % (42.0-75.0); Hemoglobin 10.7 g/dL (14.0-18.0); Mean Corpuscular HGB CONC 33.4 g/dL (32.0-36.0); Mean Corpuscular Volume 98.7 fl (78.0-98.0); Mean Platelet Volume 7.1 fL (7.4-10.4); Platelet Count 277 10x3/uL (130-400); RBC Distribution Width 12.4 % (11.5-14.5); Red Blood Cell (RBC) Count 3.25 mill/uL (4.70-6.10); White Blood Cell (WBC) Count 8.7 10x3/uL (4.8-10.8)
[2022-03-30 12:43] LABS: ALT (SGPT) 13 U/L (8-55); AST (SGOT) 14 U/L (5-34); Albumin 4.2 g/dL (3.4-4.8); Alkaline Phosphatase 47 U/L (40-110); Anion Gap 18 mmol/L (10-20); BUN (Urea Nitrogen) 29 mg/dL (8.4-25.7); Bilirubin, Total 0.6 mg/dL (0.2-1.2); Calc. Creatinine Clearance 0 mL/min (70-130); Calcium 9.7 mg/dL (7.8-10.44); Carbon Dioxide 22 mmol/L (23-31); Chloride 104 mmol/L (98-107); Estimated GFR 50; Globulin 3.3 g/dL (2.4-3.5); Glucose 158 mg/dL (83-110); Potassium 4.8 mmol/L (3.5-5.1); Protein, Total 7.5 g/dL (5.8-8.1); Sodium 139 mmol/L (136-145)
== END 2022-03-30 14:41 | disposition home or self-care (01) ==
LOC: ERS 11:31
DX: I95.1 Orthostatic hypotension (principal); E78.00 Pure hypercholesterolemia, unspecified; E11.9 Type 2 diabetes mellitus without complications; I11.0 Hypertensive heart disease with heart failure; I50.9 Heart failure, unspecified; Z79.01 Long term (current) use of anticoagulants; Z79.899 Other long term (current) drug therapy; Z79.84 Long term (current) use of oral hypoglycemic drugs
CPT/HCPCS: 71045; 80053; 83880; 84484; 85025; 93005

== ENCOUNTER 2023-10-10 08:43 | Emergency (ER) | payer MEDICARE | END 2023-10-10 09:28 | disposition home or self-care (01) | LOC: ERS 08:43 | DX: S00.412A Abrasion of left ear, initial encounter (principal); I13.0 Hypertensive heart and chronic kidney disease with heart failure and stage 1 through stage 4 chronic kidney disease, or unspecified chronic kidney disease; E11.22 Type 2 diabetes mellitus with diabetic chronic kidney disease; N18.30 Chronic kidney disease, stage 3 unspecified; I50.9 Heart failure, unspecified; X58.XXXA Exposure to other specified factors, initial encounter | CPT/HCPCS: 99282 ==

== ENCOUNTER 2024-01-03 10:33 | Emergency (ER) | payer MEDICARE ==
[2024-01-03 11:31] LABS: #Basophils 0.03 10x3/uL (0.0-0.2); %Basophils 0.6 % (0.0-1.0); %Eosinophils 4.5 % (0.0-10.0); %Lymphocytes 18.5 % (21.0-51.0); %Neutrophils 64.8 % (42.0-75.0); Hematocrit 30.9 % (42.0-52.0); Hemoglobin 10.5 g/dL (14.0-18.0); Mean Corpuscular Hemoglobin 32.2 pg (27.0-31.0); Mean Corpuscular Volume 94.8 fL (78.0-98.0); Mean Platelet Volume 9.3 fL (7.4-10.4); Platelet Count 266 10x3/uL (130-400); Red Blood Cell (RBC) Count 3.26 mill/uL (4.70-6.10)
[2024-01-03 12:00] LABS: ALT (SGPT) 52 U/L (8-55); AST (SGOT) 30 U/L (5-34); Albumin 3.5 g/dL (3.4-4.8); Alkaline Phosphatase 42 U/L (40-110); Anion Gap 13 mmol/L (10-20); BUN (Urea Nitrogen) 48 mg/dL (8.4-25.7); Bilirubin, Total 0.4 mg/dL (0.2-1.2); Calc. Creatinine Clearance 0 mL/min (70-130); Calcium 9.4 mg/dL (7.8-10.44); Carbon Dioxide 21 mmol/L (23-31); Chloride 107 mmol/L (98-107); Estimated GFR 33; Globulin 3.3 g/dL (2.4-3.5); Glucose 144 mg/dL (83-110); Lipase 30 U/L (8-78); Protein, Total 6.8 g/dL (5.8-8.1); Sodium 136 mmol/L (136-145)
[2024-01-03 12:05] LABS: Troponin I 0.014 ng/mL (< 0.028)
== END 2024-01-03 15:00 | disposition home or self-care (01) ==
LOC: ERS 10:33
DX: E86.0 Dehydration (principal); E11.9 Type 2 diabetes mellitus without complications; I13.0 Hypertensive heart and chronic kidney disease with heart failure and stage 1 through stage 4 chronic kidney disease, or unspecified chronic kidney disease; I50.9 Heart failure, unspecified; N18.30 Chronic kidney disease, stage 3 unspecified; E11.22 Type 2 diabetes mellitus with diabetic chronic kidney disease; E78.00 Pure hypercholesterolemia, unspecified; Z79.82 Long term (current) use of aspirin; Z79.84 Long term (current) use of oral hypoglycemic drugs; Z79.01 Long term (current) use of anticoagulants; Z79.899 Other long term (current) drug therapy
CPT/HCPCS: 71045; 80053; 83690; 83735; 83880; 84484; 85025; 85379; 93005; 94760; 96360; 96361

== ENCOUNTER 2024-03-10 06:53 | Outpatient (CLI) | payer MEDICARE | END 2024-03-10 06:54 | disposition home or self-care (01) | LOC: BICULT 06:53 | PROVIDERS: ATTEND Internal Medicine Nephrology | DX: N17.9 Acute kidney failure, unspecified (principal); I16.0 Hypertensive urgency; I70.1 Atherosclerosis of renal artery; N32.89 Other specified disorders of bladder | CPT/HCPCS: 76770; 93975 ==

== ENCOUNTER 2024-03-15 15:17 | Inpatient (IN) | payer MEDICARE ==
[2024-03-15 15:57] LABS: #Basophils 0.03 10x3/uL (0.0-0.2); %Basophils 0.6 % (0.0-1.0); %Eosinophils 2.8 % (0.0-10.0); %Monocytes 10.3 % (0.0-10.0); %Neutrophils 72.1 % (42.0-75.0); Hematocrit 28.1 % (42.0-52.0); Mean Corpuscular HGB CONC 35.6 g/dL (32.0-36.0); Mean Corpuscular Volume 92.7 fL (78.0-98.0); Mean Platelet Volume 10.3 fL (7.4-10.4); Platelet Count 219 10x3/uL (130-400); RBC Distribution Width 12.7 % (11.5-14.5); Red Blood Cell (RBC) Count 3.03 mill/uL (4.70-6.10)
[2024-03-15 16:13] LABS: Troponin I Less than 0.010 ng/mL (< 0.028)
[2024-03-15 16:14] LABS: ALT (SGPT) 50 U/L (8-55); AST (SGOT) 37 U/L (5-34); Albumin 3.3 g/dL (3.4-4.8); Alkaline Phosphatase 55 U/L (40-110); Anion Gap 12 mmol/L (10-20); BUN (Urea Nitrogen) 28 mg/dL (8.4-25.7); Bilirubin, Total 0.7 mg/dL (0.2-1.2); Calc. Creatinine Clearance 0 mL/min (70-130); Calcium 8.8 mg/dL (7.8-10.44); Carbon Dioxide 24 mmol/L (23-31); Chloride 97 mmol/L (98-107); Estimated GFR 37; Globulin 3.2 g/dL (2.4-3.5); Glucose 126 mg/dL (83-110); Lipase 14 U/L (8-78); Potassium 4.8 mmol/L (3.5-5.1); Protein, Total 6.5 g/dL (5.8-8.1); Sodium 128 mmol/L (136-145)
[2024-03-15] MEDS ORDERED: Furosemide 40 MG (4 mL) VIAL ONE ×2 (17:15→17:19)
[2024-03-15] MEDS ORDERED: Pantoprazole 40 MG VIAL ONE (17:15)
[2024-03-15] MEDS ORDERED: Ondansetron PF 4 MG/2 ML Vial IVP PRN (17:59)
[2024-03-15] MEDS ORDERED: Acetaminophen 325 MG TAB PO PRN (17:59)
[2024-03-15] MEDS ORDERED: Dextrose 50% Abboject 50 ML SYRINGE SLOW IVP PRN (18:01)
[2024-03-15] MEDS ORDERED: Dextrose 5% in Water 1,000 ML IV PRN (18:01)
[2024-03-15] MEDS ORDERED: Insulin Lispro 100 UNIT/ML 10 ML VIAL SC PRN (18:01)
[2024-03-15] MEDS ORDERED: Glucagon 1 MG/ML KIT IM PRN (18:01)
[2024-03-15 20:15] VITALS: BMI 21.4
[2024-03-15 22:11] LABS: #Basophils 0.03 10x3/uL (0.0-0.2); %Basophils 0.5 % (0.0-1.0); %Eosinophils 2.7 % (0.0-10.0); %Lymphocytes 17.1 % (21.0-51.0); %Monocytes 11.5 % (0.0-10.0); %Neutrophils 67.5 % (42.0-75.0); Hematocrit 29.4 % (42.0-52.0); Hemoglobin 10.3 g/dL (14.0-18.0); Mean Corpuscular Hemoglobin 31.9 pg (27.0-31.0); Mean Platelet Volume 9.4 fL (7.4-10.4); Platelet Count 255 10x3/uL (130-400); RBC Distribution Width 12.4 % (11.5-14.5); Red Blood Cell (RBC) Count 3.23 mill/uL (4.70-6.10)
[2024-03-15 22:28] LABS: Anion Gap 14 mmol/L (10-20); BUN (Urea Nitrogen) 29 mg/dL (8.4-25.7); Calc. Creatinine Clearance 31 mL/min (70-130); Carbon Dioxide 22 mmol/L (23-31); Chloride 98 mmol/L (98-107); Estimated GFR 38; Glucose 202 mg/dL (83-110); Magnesium 1.8 mg/dL (1.6-2.6); Potassium 4.5 mmol/L (3.5-5.1); Sodium 129 mmol/L (136-145)
[2024-03-16 04:03] LABS: #Basophils Less than 0.03 10x3/uL (0.0-0.2); %Basophils 0.5 % (0.0-1.0); %Eosinophils 3.2 % (0.0-10.0); %Lymphocytes 14.9 % (21.0-51.0); %Monocytes 12.7 % (0.0-10.0); Hematocrit 29.6 % (42.0-52.0); Hemoglobin 10.3 g/dL (14.0-18.0); Mean Corpuscular HGB CONC 34.8 g/dL (32.0-36.0); Mean Corpuscular Hemoglobin 32.5 pg (27.0-31.0); Mean Corpuscular Volume 93.4 fL (78.0-98.0); Platelet Count 274 10x3/uL (130-400); RBC Distribution Width 12.4 % (11.5-14.5); Red Blood Cell (RBC) Count 3.17 mill/uL (4.70-6.10)
[2024-03-16 04:34] LABS: Anion Gap 15 mmol/L (10-20); BUN (Urea Nitrogen) 31 mg/dL (8.4-25.7); Calc. Creatinine Clearance 30 mL/min (70-130); Calcium 9.4 mg/dL (7.8-10.44); Carbon Dioxide 24 mmol/L (23-31); Chloride 98 mmol/L (98-107); Estimated GFR 35; Glucose 109 mg/dL (83-110); Magnesium 1.8 mg/dL (1.6-2.6); Potassium 4.3 mmol/L (3.5-5.1); Sodium 133 mmol/L (136-145)
[2024-03-16] MEDS: Furosemide 20 MG (2 mL) VIAL SLOW IVP SCH (06:09)
[2024-03-16] MEDS: Levothyroxine Sodium 25 MCG TAB PO SCH (06:09)
[2024-03-16] MEDS: Pantoprazole DR 40 MG TAB PO SCH (09:10)
[2024-03-16] MEDS: Apixaban 5 MG TAB PO SCH (09:10)
[2024-03-16] MEDS: Dronedarone HCl 400 MG TAB PO SCH (09:10)
[2024-03-16] MEDS: Carvedilol 3.125 MG TAB PO SCH (09:10)
[2024-03-16] MEDS: Aspirin 81 mg Enteric Coated Tablet PO SCH (09:10)
[2024-03-16] MEDS: Sacubitril 49 MG/Valsartan 51 MG TABLET PO SCH (20:02)
[2024-03-16] MEDS: Ranolazine ER 500 MG TAB PO SCH (20:02)
[2024-03-16] MEDS: Atorvastatin Calcium 40 MG TAB PO SCH (20:03)
[2024-03-16] MEDS ORDERED: Atorvastatin Calcium 20 MG TAB PO SCH (21:00)
[2024-03-17 04:33] LABS: #Basophils 0.03 10x3/uL (0.0-0.2); %Basophils 0.4 % (0.0-1.0); %Eosinophils 3.5 % (0.0-10.0); %Lymphocytes 12.3 % (21.0-51.0); %Monocytes 12.3 % (0.0-10.0); %Neutrophils 71.2 % (42.0-75.0); Hematocrit 32.6 % (42.0-52.0); Hemoglobin 11.2 g/dL (14.0-18.0); Mean Corpuscular HGB CONC 34.4 g/dL (32.0-36.0); Mean Corpuscular Hemoglobin 32.5 pg (27.0-31.0); Mean Corpuscular Volume 94.5 fL (78.0-98.0); Mean Platelet Volume 9.3 fL (7.4-10.4); Platelet Count 289 10x3/uL (130-400); RBC Distribution Width 12.7 % (11.5-14.5); Red Blood Cell (RBC) Count 3.45 mill/uL (4.70-6.10)
[2024-03-17 04:54] LABS: Anion Gap 15 mmol/L (10-20); BUN (Urea Nitrogen) 36 mg/dL (8.4-25.7); Calc. Creatinine Clearance 25 mL/min (70-130); Calcium 9.5 mg/dL (7.8-10.44); Carbon Dioxide 27 mmol/L (23-31); Chloride 101 mmol/L (98-107); Estimated GFR 29; Glucose 129 mg/dL (83-110); Magnesium 1.8 mg/dL (1.6-2.6); Potassium 4.4 mmol/L (3.5-5.1); Sodium 139 mmol/L (136-145)
[2024-03-17] MEDS: Isosorbide Mononitrate 60 MG ER.TAB PO SCH (09:05)
[2024-03-17] MEDS: Dapagliflozin Propanediol 10 MG TAB PO SCH (09:06)
[2024-03-17] MEDS ORDERED: Communication Order-Pharmacy FS SCH (18:45)
[2024-03-17 19:30] LABS: Hematocrit 31.1 % (42.0-52.0); Hemoglobin 10.7 g/dL (14.0-18.0); Platelet Count 294 10x3/uL (130-400)
[2024-03-17] MEDS: Enoxaparin 60 MG (0.6 mL) SYRINGE SC SCH (20:13)
[2024-03-17] MEDS: Amiodarone 200 MG TAB PO SCH (20:14)
[2024-03-17] MEDS ORDERED: Apixaban 2.5 MG TAB PO SCH (21:00)
[2024-03-18 04:43] LABS: #Basophils 0.04 10x3/uL (0.0-0.2); %Basophils 0.5 % (0.0-1.0); %Eosinophils 4.5 % (0.0-10.0); %Neutrophils 68.6 % (42.0-75.0); Hematocrit 31.2 % (42.0-52.0); Hemoglobin 10.8 g/dL (14.0-18.0); Mean Corpuscular HGB CONC 34.6 g/dL (32.0-36.0); Mean Corpuscular Hemoglobin 31.9 pg (27.0-31.0); Mean Platelet Volume 9.2 fL (7.4-10.4); Platelet Count 286 10x3/uL (130-400); RBC Distribution Width 12.5 % (11.5-14.5); Red Blood Cell (RBC) Count 3.39 mill/uL (4.70-6.10)
[2024-03-18 06:11] LABS: Anion Gap 16 mmol/L (10-20); BUN (Urea Nitrogen) 45 mg/dL (8.4-25.7); Calc. Creatinine Clearance 24 mL/min (70-130); Calcium 9.2 mg/dL (7.8-10.44); Carbon Dioxide 25 mmol/L (23-31); Chloride 98 mmol/L (98-107); Estimated GFR 29; Glucose 131 mg/dL (83-110); Magnesium 1.9 mg/dL (1.6-2.6); Potassium 4.4 mmol/L (3.5-5.1); Sodium 135 mmol/L (136-145)
[2024-03-18] MEDS: Albumin 25% 25 GM (100 mL) BOT IVPB SCH (17:49)
[2024-03-19 04:36] LABS: #Basophils 0.04 10x3/uL (0.0-0.2); %Basophils 0.8 % (0.0-1.0); %Eosinophils 5.9 % (0.0-10.0); %Lymphocytes 22.1 % (21.0-51.0); %Neutrophils 59.8 % (42.0-75.0); Hematocrit 28.1 % (42.0-52.0); Hemoglobin 9.5 g/dL (14.0-18.0); Mean Corpuscular HGB CONC 33.8 g/dL (32.0-36.0); Mean Corpuscular Hemoglobin 31.9 pg (27.0-31.0); Mean Corpuscular Volume 94.3 fL (78.0-98.0); Mean Platelet Volume 9.2 fL (7.4-10.4); Platelet Count 271 10x3/uL (130-400); RBC Distribution Width 12.5 % (11.5-14.5); Red Blood Cell (RBC) Count 2.98 mill/uL (4.70-6.10)
[2024-03-19 05:02] LABS: Anion Gap 16 mmol/L (10-20); BUN (Urea Nitrogen) 45 mg/dL (8.4-25.7); Calc. Creatinine Clearance 22 mL/min (70-130); Calcium 9.7 mg/dL (7.8-10.44); Carbon Dioxide 24 mmol/L (23-31); Chloride 101 mmol/L (98-107); Estimated GFR 27; Glucose 118 mg/dL (83-110); Potassium 4.7 mmol/L (3.5-5.1); Sodium 136 mmol/L (136-145)
[2024-03-19] MEDS ORDERED: Carvedilol 3.125 MG TAB PO SCH (10:27)
[2024-03-19] MEDS: Carvedilol 6.25 MG TAB PO SCH ×2 (12:31→16:27)
[2024-03-20 02:51] LABS: #Basophils 0.03 10x3/uL (0.0-0.2); %Basophils 0.7 % (0.0-1.0); %Eosinophils 6.7 % (0.0-10.0); %Lymphocytes 19.6 % (21.0-51.0); %Monocytes 12.1 % (0.0-10.0); %Neutrophils 60.5 % (42.0-75.0); Hematocrit 28.2 % (42.0-52.0); Hemoglobin 9.6 g/dL (14.0-18.0); Mean Corpuscular Hemoglobin 31.7 pg (27.0-31.0); Mean Corpuscular Volume 93.1 fL (78.0-98.0); Platelet Count 261 10x3/uL (130-400); RBC Distribution Width 12.4 % (11.5-14.5); Red Blood Cell (RBC) Count 3.03 mill/uL (4.70-6.10)
[2024-03-20 03:10] LABS: Anion Gap 15 mmol/L (10-20); BUN (Urea Nitrogen) 45 mg/dL (8.4-25.7); Calc. Creatinine Clearance 27 mL/min (70-130); Calcium 9.6 mg/dL (7.8-10.44); Carbon Dioxide 22 mmol/L (23-31); Chloride 105 mmol/L (98-107); Estimated GFR 35; Glucose 128 mg/dL (83-110); Potassium 4.5 mmol/L (3.5-5.1); Sodium 137 mmol/L (136-145)
[2024-03-20] MEDS: Insulin Lispro 100 UNIT/ML 10 ML VIAL SC PRN (17:46)
[2024-03-21 04:05] LABS: #Basophils 0.03 10x3/uL (0.0-0.2); %Basophils 0.7 % (0.0-1.0); %Eosinophils 6.5 % (0.0-10.0); %Lymphocytes 19.8 % (21.0-51.0); %Monocytes 13.6 % (0.0-10.0); Hematocrit 29.4 % (42.0-52.0); Hemoglobin 9.8 g/dL (14.0-18.0); Mean Corpuscular HGB CONC 33.3 g/dL (32.0-36.0); Mean Corpuscular Hemoglobin 31.7 pg (27.0-31.0); Mean Corpuscular Volume 95.1 fL (78.0-98.0); Mean Platelet Volume 9.2 fL (7.4-10.4); Platelet Count 256 10x3/uL (130-400); RBC Distribution Width 12.3 % (11.5-14.5); Red Blood Cell (RBC) Count 3.09 mill/uL (4.70-6.10)
[2024-03-21 04:20] LABS: Anion Gap 14 mmol/L (10-20); BUN (Urea Nitrogen) 45 mg/dL (8.4-25.7); Calc. Creatinine Clearance 25 mL/min (70-130); Calcium 9.5 mg/dL (7.8-10.44); Carbon Dioxide 22 mmol/L (23-31); Chloride 102 mmol/L (98-107); Estimated GFR 32; Glucose 128 mg/dL (83-110); Potassium 4.3 mmol/L (3.5-5.1); Sodium 134 mmol/L (136-145)
[2024-03-21 15:35] VITALS: BP 149/79; TEMP 97.5
[2024-03-21] MEDS ORDERED: Sacubitril 49 MG/Valsartan 51 MG TABLET PO SCH (21:00)
== END 2024-03-21 17:25 | disposition home or self-care (01) | DRG 291 ==
LOC: ERS 15:17 → 2NO 17:57
PROVIDERS: ADMIT Internal Medicine; ATTEND Internal Medicine
DX: I13.0 Hypertensive heart and chronic kidney disease with heart failure and stage 1 through stage 4 chronic kidney disease, or unspecified chronic kidney disease (principal); I50.33 Acute on chronic diastolic (congestive) heart failure; N17.9 Acute kidney failure, unspecified; E87.1 Hypo-osmolality and hyponatremia; N18.30 Chronic kidney disease, stage 3 unspecified; I25.10 Atherosclerotic heart disease of native coronary artery without angina pectoris; E11.22 Type 2 diabetes mellitus with diabetic chronic kidney disease; E03.9 Hypothyroidism, unspecified; E78.5 Hyperlipidemia, unspecified; I49.5 Sick sinus syndrome; I48.0 Paroxysmal atrial fibrillation; I42.0 Dilated cardiomyopathy; I25.5 Ischemic cardiomyopathy; D64.9 Anemia, unspecified; K21.9 Gastro-esophageal reflux disease without esophagitis; Z95.0 Presence of cardiac pacemaker; Z95.1 Presence of aortocoronary bypass graft; Z88.5 Allergy status to narcotic agent; Z90.49 Acquired absence of other specified parts of digestive tract; Z79.899 Other long term (current) drug therapy; Z79.01 Long term (current) use of anticoagulants; Z79.890 Hormone replacement therapy; Z79.82 Long term (current) use of aspirin; Z79.84 Long term (current) use of oral hypoglycemic drugs
CPT/HCPCS: 36415; 36416; 70450; 71045; 80048; 80053; 83690; 83735; 83880; 84484; 85025; 85520; 93005; 93306; 96374; 97139; J1650; J1815; J1940; J2470; P9047

== ENCOUNTER 2024-03-23 10:53 | Emergency (ER) | payer MEDICARE ==
[2024-03-23 12:57] LABS: #Basophils 0.04 10x3/uL (0.0-0.2); %Basophils 0.6 % (0.0-1.0); %Eosinophils 3.2 % (0.0-10.0); %Lymphocytes 14.6 % (21.0-51.0); %Monocytes 9.7 % (0.0-10.0); %Neutrophils 71.3 % (42.0-75.0); Hematocrit 30.8 % (42.0-52.0); Hemoglobin 10.3 g/dL (14.0-18.0); Mean Corpuscular HGB CONC 33.4 g/dL (32.0-36.0); Mean Corpuscular Hemoglobin 31.9 pg (27.0-31.0); Mean Corpuscular Volume 95.4 fL (78.0-98.0); Mean Platelet Volume 9.2 fL (7.4-10.4); Platelet Count 236 10x3/uL (130-400); RBC Distribution Width 12.4 % (11.5-14.5); Red Blood Cell (RBC) Count 3.23 mill/uL (4.70-6.10)
[2024-03-23 13:20] LABS: ALT (SGPT) 31 U/L (8-55); AST (SGOT) 25 U/L (5-34); Albumin 4.3 g/dL (3.4-4.8); Alkaline Phosphatase 51 U/L (40-110); Anion Gap 14 mmol/L (10-20); BUN (Urea Nitrogen) 49 mg/dL (8.4-25.7); Bilirubin, Total 0.5 mg/dL (0.2-1.2); Calc. Creatinine Clearance 0 mL/min (70-130); Calcium 9.8 mg/dL (7.8-10.44); Carbon Dioxide 24 mmol/L (23-31); Chloride 104 mmol/L (98-107); Estimated GFR 31; Globulin 2.8 g/dL (2.4-3.5); Glucose 143 mg/dL (83-110); Lipase 23 U/L (8-78); Potassium 5.2 mmol/L (3.5-5.1); Protein, Total 7.1 g/dL (5.8-8.1); Sodium 137 mmol/L (136-145)
[2024-03-23 13:23] LABS: Troponin I Less than 0.010 ng/mL (< 0.028)
== END 2024-03-23 16:11 | disposition home or self-care (01) ==
LOC: ERS 10:53
DX: I77.1 Stricture of artery (principal); E11.22 Type 2 diabetes mellitus with diabetic chronic kidney disease; N18.30 Chronic kidney disease, stage 3 unspecified; I13.0 Hypertensive heart and chronic kidney disease with heart failure and stage 1 through stage 4 chronic kidney disease, or unspecified chronic kidney disease; I50.9 Heart failure, unspecified; E78.00 Pure hypercholesterolemia, unspecified; Z79.82 Long term (current) use of aspirin; Z79.899 Other long term (current) drug therapy; Z79.01 Long term (current) use of anticoagulants
CPT/HCPCS: 36415; 70450; 74177; 80053; 83690; 83880; 84484; 85025; 93005

== ENCOUNTER 2024-04-28 12:20 | Outpatient (CLI) | payer MEDICARE ==
[2024-04-28 14:18] LABS: #Basophils 0.05 10x3/uL (0.0-0.2); %Monocytes 8.9 % (0.0-10.0); %Neutrophils 64.5 % (42.0-75.0); Hemoglobin 10.5 g/dL (14.0-18.0); Mean Corpuscular HGB CONC 33.9 g/dL (32.0-36.0); Mean Corpuscular Hemoglobin 32.7 pg (27.0-31.0); Mean Corpuscular Volume 96.6 fL (78.0-98.0); Mean Platelet Volume 9.3 fL (7.4-10.4); Platelet Count 232 10x3/uL (130-400); RBC Distribution Width 13.6 % (11.5-14.5); Red Blood Cell (RBC) Count 3.21 mill/uL (4.70-6.10)
[2024-04-28 14:43] LABS: Anion Gap 13 mmol/L (10-20); BUN (Urea Nitrogen) 29 mg/dL (8.4-25.7); Calc. Creatinine Clearance 0 mL/min (70-130); Calcium 9.5 mg/dL (7.8-10.44); Carbon Dioxide 25 mmol/L (23-31); Chloride 106 mmol/L (98-107); Estimated GFR 39; Glucose 178 mg/dL (83-110); Potassium 4.9 mmol/L (3.5-5.1); Sodium 139 mmol/L (136-145)
== END 2024-04-28 12:21 | disposition home or self-care (01) ==
LOC: LABBT 12:20
PROVIDERS: ATTEND Thoracic Surgery (Cardiothoracic Vascular Surgery)
DX: Z01.812 Encounter for preprocedural laboratory examination (principal); K55.1 Chronic vascular disorders of intestine
CPT/HCPCS: 80048; 85025

== ENCOUNTER 2024-05-06 06:08 | Day surgery (SDC) | payer MEDICARE ==
[2024-05-06] MEDS ORDERED: Midazolam HCl 2 mg/2 ml Vial ONE (07:51)
[2024-05-06] MEDS ORDERED: Heparin 10,000 UNITS/ 10 ML VIAL ONE (07:51)
[2024-05-06] MEDS ORDERED: fentaNYL 50 mcg/mL 1 mL Vial ONE (07:51)
== END 2024-05-06 12:04 | disposition home or self-care (01) ==
LOC: SDC 06:08
PROVIDERS: ATTEND Thoracic Surgery (Cardiothoracic Vascular Surgery)
PROC: B400YZZ Plain Radiography of Abdominal Aorta using Other Contrast (ICD-10-PCS; principal; 2024-05-06)
PROC: B200YZZ Plain Radiography of Single Coronary Artery using Other Contrast (ICD-10-PCS; 2024-05-06)
DX: K55.1 Chronic vascular disorders of intestine (principal); I66.9 Occlusion and stenosis of unspecified cerebral artery; I13.0 Hypertensive heart and chronic kidney disease with heart failure and stage 1 through stage 4 chronic kidney disease, or unspecified chronic kidney disease; I50.9 Heart failure, unspecified; N18.9 Chronic kidney disease, unspecified; E11.22 Type 2 diabetes mellitus with diabetic chronic kidney disease; E78.5 Hyperlipidemia, unspecified; Z90.49 Acquired absence of other specified parts of digestive tract; Z98.890 Other specified postprocedural states; Z79.899 Other long term (current) drug therapy; Z88.5 Allergy status to narcotic agent
CPT/HCPCS: 36245; 37236; 85347; C1760; C1769 ×3; C1887 ×3; C1894; J1644; 75726; J2250; J3010

== ENCOUNTER 2025-03-25 22:20 | Emergency (ER) | payer MEDICARE ==
[2025-03-26] MEDS ORDERED: Lidocaine 1% w/Epinephrine 1:100K 20 ML VIAL ONE (02:45)
== END 2025-03-26 03:03 | disposition home or self-care (01) ==
LOC: ERS 22:20
DX: L76.22 Postprocedural hemorrhage of skin and subcutaneous tissue following other procedure (principal); I13.0 Hypertensive heart and chronic kidney disease with heart failure and stage 1 through stage 4 chronic kidney disease, or unspecified chronic kidney disease; E11.22 Type 2 diabetes mellitus with diabetic chronic kidney disease; N18.30 Chronic kidney disease, stage 3 unspecified; I50.9 Heart failure, unspecified; E78.00 Pure hypercholesterolemia, unspecified; Z79.82 Long term (current) use of aspirin; Z79.899 Other long term (current) drug therapy
CPT/HCPCS: 99283